=== PATIENT | male | born 1980 | race Caucasian/White ===

== ENCOUNTER 2016-10-03 18:41 | Emergency (ER) | payer OTHER ==
[~2016-10-03] VITALS: Ht 175.3 cm; Wt 90.6 kg
[2016-10-03 18:43] VITALS: Ht 175.3 cm; Wt 90.6 kg
--- OUTSIDE RECORDS SUMMARY | 2016-10-03 18:46 | XMS REPORT ---
Author Author Ceci Alfonso Organization [employer] Address Unknown Phone Unavailable Care Team Providers Care Grain Unloader Name Role Phone Ceci Alfonso CP Unavailable Allergies No Known Allergies Problems Problem Type Condition ICD-9 Code Onset Dates Condition Status Problem Esophageal reflux 530.81 Active Problem Pain in joint, lower leg 719.46 Active Problem Posttraumatic stress disorder 309.81 Active Problem Unspecified hearing loss 389.9 Active Problem Palpitations 785.1 Active Medications No Known Medications Results No Known Results Summary Purpose [employer] Submission
--- OUTSIDE RECORDS SUMMARY | 2016-10-03 18:46 | XMS REPORT | Continuity of Care Document ---
Author Author [facility] Organization [facility] Address Unknown Phone Unavailable Allergies Active Description Code Type Severity Reaction Onset Reported/Identified Relationship to Patient Clinical Status Yes Sulfa (Sulfonamide Antibiotics) Sulfa (Sulfonamide Antibiotics) Drug Allergy Unknown UNKNOWN 11/13/2013 Medications Problems Procedures Results Encounters ACCT No. Visit Date/Time Discharge Status Pt. Type Provider Facility Loc./Unit Complaint [id number] 03/02/2015 17:11:00 2014 18:18:00 DIS Emergency Lucien Rondon DO [facility] W.EDW [id number] 11/13/2013 09:38:00 2013 12:07:00 DIS Emergency Asad Tse DO [facility] W.EDS
--- OUTSIDE RECORDS SUMMARY | 2016-10-03 18:46 | XMS REPORT ---
Author Author Riley Murray Organization [employer] Address Unknown Phone Unavailable Care Team Providers Care Woods Manager Name Role Phone Riley Murray CP Unavailable Allergies, Adverse Reactions, Alerts Substance Reaction Event Type sulfa Info Not Available Drug Allergy Problems Problem Type Condition ICD-9 Code Onset Dates Condition Status Assessment Back spasm 724.8 Active Problem Esophageal reflux 530.81 Active Problem Pain in joint, lower leg 719.46 Active Problem Posttraumatic stress disorder 309.81 Active Assessment Sebaceous cyst 706.2 Active Assessment Onychomycosis 110.1 Active Problem Unspecified hearing loss 389.9 Active Problem Palpitations 785.1 Active Medications Medication Code System Code Instructions Start Date End Date Status Dosage Omeprazole [facility] [address]-23 40 MG once daily 1 tablet Kerydin [facility] [address]-89 5 % Externally Once a day Jan 14, 2015 1 to affected area Procedures Procedure Coding System Code Date OFFICE VISITEST PT CPT-4 35974 Jan 14, 2015 Vital Signs Date/Time: Jan 14, 2015 Blood Pressure Systolic 132 mm Hg Height 68 in Weight 198 lbs BMI 30.10 Index Blood Pressure Diastolic 80 mm Hg Results No Known Results Summary Purpose [employer] Submission
--- OUTSIDE RECORDS SUMMARY | 2016-10-03 18:46 | XMS REPORT ---
Author Author Ceci Alfonso Organization [employer] Address Unknown Phone Unavailable Care Team Providers Care Master Police Detective Name Role Phone Ceci Alfonso CP Unavailable Allergies, Adverse Reactions, Alerts Substance Reaction Event Type sulfa Info Not Available Drug Allergy Nasonex epistaxis Drug Allergy Problems Problem Type Condition Code Onset Dates Condition Status Assessment Knee strain, left, initial encounter S86.912A Active Problem Esophageal reflux K21.9 Active Problem Palpitations R00.2 Active Problem PTSD (post-traumatic stress disorder) F43.10 Active Assessment Esophageal reflux K21.9 Active Assessment Postnasal drip R09.82 Active Problem Hearing loss, unspecified laterality H91.90 Active Assessment Cough R05 Active Medications Medication Code System Code Instructions Start Date End Date Status Dosage Protonix [facility] [address]-51 40 MG Orally Once a day Feb 17, 2016 1 tablet Procedures Procedure Coding System Code Date OFFICE VISITEST PT CPT-4 58347 Feb 17, 2016 Vital Signs Date/Time: Feb 17, 2016 Blood Pressure Systolic 120 mm Hg Height 68 in Weight 200.6 lbs BMI 30.50 Index Oximetry 99 % Cardiac Monitoring Heart Rate 63 /min Blood Pressure Diastolic 74 mm Hg Results No Known Results Summary Purpose [employer] Submission
--- NOTE | 2016-10-03 18:58 | ERPDOC ---
Departure Disposition Decision Date: October 03, 2016 Disposition Decision Time: 21:29 Disposition: 01 DISCHARGED HOME, SELF-CARE Impression Impression Impression: Primary Impression: Rib contusion Encounter type: initial encounter Laterality: right Qualified Codes: S20.211A - Contusion of right front wall of thorax, initial encounter Condition: Improved Seen By: Mid-level only Patient Instructions: Rib Contusion (ED) Problems/Meds/Labs Reviewed?: Yes Medications reviewed and manag: Yes Additional Instructions: Your x-rays did not show a rib fracture. Take 800mg of ibuprofen every 8 hours with food for pain. You may take norco 5/325mg, 1-2 tabs every 6 hours as needed for pain. Follow with your PCP as needed. Follow treatment plan (see discharge packet). Follow up care ordered?: Yes Mental Status: Alert, Oriented Scripts Hydrocodone/Acetaminophen ([place] 5-325 Tablet) 5-325 Tablet 1-2 TAB PO Q6HPRN Y for PAIN, #20 TAB Prov: CHERELLE SEGOVIA APRN 10/03/16 HPI - Fall/Injury General Chief Complaint: Fall Stated Complaint: RIGHT RIB PAIN Time Seen by Provider: 18:58 Source: patient HPI - Fall/Injury Initial Comments 36 YO M presents to ED with report of right anterior rib pain. Patient says that he was carrying his daughter on his shoulder 4 days ago and tripped over foam roller on the floor. Says that he fell against bed post striking the right side of his chest. Pain has increased since injury. Painful to take a deep breath, sneeze, cough or move chest wall. Has been taking 800mg of ibuprofen daily for pain which is not helping. Denies any other injuries. Pain Scale: Now: 5/10 Injuries/Pain Location: chest Context: tripped Associated Symptoms: chest pain, DENIES: abdominal pain, confusion, dizziness, headache, lightheadedness, muscle spasms, nausea/vomiting, neck pain, ringing in ears, seizures, shortness of breath, slurred speech, trouble walking Allergies: Coded Allergies: Sulfa (Sulfonamide Antibiotics) (Verified Allergy, Unknown, 10/03/16) Past History Past Medical History Pt denies signifigant PMH Surgical History Denies Surgeries Family History Family PMH: FOUND: other (noncontributory) Social History Sexuality: female partner Household Members: family Review of Systems Constitutional Constitutional: DENIES: chills, dizziness, fever, weakness Eyes General: DENIES: erythema, exudate Lids/Accessories: DENIES: erythema, swelling ENMT Ears: DENIES: pain Hearing: DENIES: hearing loss Sinuses: DENIES: congestion, rhinorrhea Mouth/Throat: DENIES: sore throat Cardiovascular Cardiac: chest pain, see HPI, DENIES: murmur Rhythm/Rate: DENIES: palpitations Pulmonary Respiratory: DENIES: cough, dyspnea GI Upper Abdomen: DENIES: nausea, pain, vomiting Lower Abdomen: DENIES: diarrhea, pain General: DENIES: dysuria, pain Musculoskeletal General: joint pain, pain, see HPI, tenderness Integumentary Skin: DENIES: color change, itching, rash Neurological General: DENIES: ataxia, change in strength, numbness, paralysis/paresis, weakness Psychiatric Psychiatric: DENIES: anxiety, depression, nervousness Physical Exam General General Nourishment: well nourished, well developed, no acute distress, adult General Body Habitus: well groomed Vitals and Pain First Documented Vital Signs Date Time Temp Pulse Resp B/P Pulse Ox O2 Delivery O2 Flow Rate FiO2 10/03/16 18:43 97.8 65 16 147/89 96 Room Air Weight: Kilograms: Height (feet): Height (inches): Triage Pain Scale: Eyes (brief) Eyes Brief: found: EOMI ENMT (brief) ENMT Brief: NOT FOUND: nasal exudate, nasal swelling Neck (brief) Neck: FOUND: trachea midline Respiratory (brief) Respiratory: FOUND: equal bilaterally, symmetrical, tenderness (see below) Comments TTP over anterior right chest ribs 5-7. No crepitus, ecchymosis, erythema or abrasion appreciated. Cardiovascular (brief) Cardiac: FOUND: regular rate, regular rhythm Musculoskeletal (brief) Musculoskeletal Brief: NOT FOUND: deformity, loss of motion Integumentary (brief) Integumentary Brief: FOUND: dry, pink, warm Neurologic (brief) Neurological Brief: FOUND: motor-no gross deficits, sensory-no gross deficits Psychiatric (brief) Psychiatric Brief: FOUND: alert, normal affect, oriented Differential Diagnoses Considering: Contusion, Fracture, Sprain, Strain Progress Results/Orders Orders Procedure Category Date Status Time Ribs Right With Ap RAD 10/03/16 Taken Chest Ketorolac (Toradol) PHA 10/03/16 Complete 21:30 Medications Current ED Medications Ketorolac Tromethamine (Toradol) 60 mg O ONCE IM Last administered on t 21:43; Start 10/03/16 at 21:30; Stop 10/03/16 at 21:31; Status DC Progress Progress I discussed x-ray findings with patient and that his symptoms are consistent with a rib contusion. Patient verbalize understanding of treatment plan, follow up as needed with PCP and return precautions. Patient is discharge home improved after toradol. Xray Xray : Xray: Ribs R (and AP chest, no acute findings (Dr. Stephens)) CHERELLE SEGOVIA NURSING AGENCY MANAGER October 03, 2016 18:58
[2016-10-03] MEDS ORDERED: PANT40TA27 PO (19:07)
--- OUTSIDE RECORDS SUMMARY | 2016-10-03 19:25 | XMS REPORT | Continuity of Care Document ---
Author Author [facility] Organization [facility] Address Unknown Phone Unavailable Allergies Active Description Code Type Severity Reaction Onset Reported/Identified Relationship to Patient Clinical Status Yes Sulfa (Sulfonamide Antibiotics) Sulfa (Sulfonamide Antibiotics) Drug Allergy Unknown UNKNOWN 11/13/2013 Medications Problems Procedures Results Encounters ACCT No. Visit Date/Time Discharge Status Pt. Type Provider Facility Loc./Unit Complaint [id number] 03/02/2015 17:11:00 2014 18:18:00 DIS Emergency Lucien Rondon DO [facility] W.EDW [id number] 11/13/2013 09:38:00 2013 12:07:00 DIS Emergency Asad Tse DO [facility] W.EDS
[2016-10-03] MEDS ORDERED: KETOROLAC 60mg/2ml INJECTION IM ONE (21:30)
[2016-10-03] MEDS ORDERED: HYDR-4246 PO (21:42)
[2016-10-03 22:05] VITALS: BP 132/78; PULSE 61; RESP 16; TEMP 97.8; O2SAT 97
--- NOTE | 2016-10-04 09:15 | DI ---
EXAM: RIBS RIGHT WITH AP CHEST 2008 hours COMPARISON: None available. HISTORY: ITS.REASON: Pain over anterior right ribs 5-7 . FINDINGS: The cardiomediastinal silhouette is within limits of normal. The pulmonary vascularity appears unremarkable. No pneumothorax or pulmonary contusion is identified. The lungs are clear. There is no evidence for pleural effusion. The right rib detail films, shows no definite evidence for a displaced rib fracture. No chest wall abnormalities are identified. No osseous abnormalities are identified. IMPRESSION: Unremarkable exam. LOCATION OF DICTATION: [facility] [place] .
== END 2016-10-03 22:05 | disposition home or self-care (01) ==
LOC: ED 18:41
DX: S20.211A Contusion of right front wall of thorax, initial encounter (principal); W01.0XXA Fall on same level from slipping, tripping and stumbling without subsequent striking against object, initial encounter; Y93.89 Activity, other specified; Y92.003 Bedroom of unspecified non-institutional (private) residence as the place of occurrence of the external cause; Y99.8 Other external cause status
CPT/HCPCS: 71101; 96372; 99283; J1885